=== PATIENT | female | born 1985 | race Caucasian/White ===

== ENCOUNTER 2017-02-25 10:10 | Emergency (ER) | payer MEDICAID ==
[~2017-02-25] VITALS: Ht 160 cm; Wt 77.3 kg
[~2017-02-25 10:10] MED LIST: ALEVE220 MG PO; AZO STANDARD; BENZONATATE200 MG PO; CEPHALEXIN500 MG OR; CIPROFLOXACN500 MG PO; CLEOCIN150 MG OR; CLINDAMYCIN150 MG OR; CLINDAMYCIN150 MG PO; CLINDAMYCIN300 M1 PO; CYSTEX; DARVOCET N-100100 - OR; EC-NAPROSYN500 MG OR; ERY-TAB500 MG OR; FLORASTOR250 M1 PO; HAIR/SKIN/ OR; LORTAB 10 OR; LORTAB 5 OR; MEDDOSEPAK PO; METHADONE5 MG OR; MOTRIN200 MG; MOTRIN800 MG OR; NAPROSYN500 MG PO; ORAJE1 MT; PAXIL20 MG OR; PREVACID30 M1 OR; PROMETHAZINE25 M1 RE; PYRIDIUM200 MG PO; REGLAN10 MG OR; TYLENOL & COD12.5 ML OR; TYLENOL500 MG OR; ULTRACET OR; ZANTAC150 MG OR; ZITHROMAX250 MG OR; ZITHROMAX250 MG PO; ZITHROMAX500 MG PO; ZOFRAN ODT4 MG PO; ZOFRAN ODT8 MG OR; ZPAK OR; ZPAK PO
[2017-02-25] MEDS ORDERED: CLINDAMYCIN300 M1 PO (10:57)
[2017-02-25 11:35] VITALS: BP 119/82
== END 2017-02-25 11:35 | disposition home or self-care (01) | DRG 159 ==
LOC: ED 10:10
DX: K08.89 Other specified disorders of teeth and supporting structures (principal); K02.9 Dental caries, unspecified

== ENCOUNTER 2021-07-10 04:42 | Emergency (ER) | payer MEDICAID | END 2021-07-10 05:05 | disposition left against medical advice (07) | DRG 951 | LOC: ED 04:42 → LWOBS 05:05 | DX: Z53.21 Procedure and treatment not carried out due to patient leaving prior to being seen by health care provider (principal) ==